=== PATIENT | female | born 1990 | race Caucasian/White ===

== ENCOUNTER 2024-11-18 14:07 | Outpatient (CLI) | payer OTHER, SELFPAY | END 2024-11-18 14:08 | disposition home or self-care (01) | PROVIDERS: Visit Provider Physician Assistant Surgical | DX: T21.32XA Burn of third degree of abdominal wall, initial encounter (principal); X12.XXXA Contact with other hot fluids, initial encounter; Y93.G3 Activity, cooking and baking | CPT/HCPCS: G0463 ==